=== PATIENT | female | born 1995 | race African-American/Black ===

== ENCOUNTER 2021-04-26 14:04 | Emergency (ER) | payer BC | END 2021-04-26 15:57 | disposition left against medical advice (07) | LOC: ERS 14:04 | DX: Z53.21 Procedure and treatment not carried out due to patient leaving prior to being seen by health care provider (principal) ==

== ENCOUNTER 2021-07-15 18:15 | Emergency (ER) | payer OTHER, SELFPAY ==
[2021-07-15] MEDS ORDERED: Ketorolac Tromethamine 30 MG/ML VIAL ONE (19:27)
== END 2021-07-15 19:56 | disposition home or self-care (01) ==
LOC: ERS 18:15
DX: S16.1XXA Strain of muscle, fascia and tendon at neck level, initial encounter (principal); S09.90XA Unspecified injury of head, initial encounter; M54.50 Low back pain, unspecified; F17.210 Nicotine dependence, cigarettes, uncomplicated; V43.52XA Car driver injured in collision with other type car in traffic accident, initial encounter
CPT/HCPCS: 96372; 99283; J1885

== ENCOUNTER 2022-01-05 19:03 | Emergency (ER) | payer SELFPAY ==
[2022-01-05] MEDS ORDERED: Bupivacaine 0.25% 10 ML VIAL ONE (20:14)
[2022-01-05] MEDS ORDERED: Bupivacaine 0.5% 10 ML VIAL FS SCH (20:15)
[2022-01-05] MEDS ORDERED: HYDROcodone/Acetaminophen 5/325 mg Tablet ONE (20:42)
== END 2022-01-05 20:46 | disposition home or self-care (01) ==
LOC: ERS 19:03
DX: K03.81 Cracked tooth (principal); K02.9 Dental caries, unspecified; F17.210 Nicotine dependence, cigarettes, uncomplicated
CPT/HCPCS: 64400; J3490; S0020